=== PATIENT | female | born 1980 | race Hispanic/Latino ===

== ENCOUNTER 2018-09-04 11:07 | Emergency (ER) | payer SELFPAY ==
[~2018-09-04] VITALS: Ht 157.5 cm; Wt 56.4 kg
[2018-09-04] MEDS ORDERED: NS 1,000 ML IV ONE (12:45)
[2018-09-04] MEDS ORDERED: KETOROLAC 30 MG/ML VIAL (J1885) IV ONE (12:45)
[2018-09-04] MEDS ORDERED: ONDANSETRON 4MG/2ML VIAL (J2405) IV ONE (12:45)
[2018-09-04 13:33] LABS: BASO # 0.1 10^3/uL (0.0-0.2); BASO % 0.7 % (0.0-1.0); LYMPH # 2.1 10^3/uL (1.5-4.5); LYMPH % 22.5 % (24.0-44.0); MEAN CORPUSCULAR HEMOGLOBIN 27.9 pg (27.0-33.0); MEAN CORPUSCULAR HGB CONC 33.3 g/dl (32.0-36.5); MEAN CORPUSCULAR VOLUME 83.6 fl (80.0-96.0); MONO # 0.5 10^3/uL (0.0-0.8); MONO % 5.3 % (0.0-5.0); NEUTROPHILS # 6.7 10^3/uL (1.8-7.7); NEUTROPHILS % 70.9 % (36.0-66.0); PLATELET COUNT, AUTOMATED 365 10^3/uL (150-450); RED BLOOD COUNT 5.38 10^6/uL (4.00-5.40); WHITE BLOOD COUNT 9.4 10^3/uL (4.0-10.0)
[2018-09-04 13:55] LABS: ALBUMIN 4.7 GM/DL (3.2-5.2); ALT/SGPT 26 U/L (12-78); AMYLASE 70 U/L (25-115); BILIRUBIN,DIRECT 0.1 MG/DL (0.0-0.2); BILIRUBIN,TOTAL 0.4 MG/DL (0.2-1.0); BLOOD UREA NITROGEN 14 MG/DL (7-18); CALCIUM LEVEL 10.3 MG/DL (8.5-10.1); CARBON DIOXIDE LEVEL 26 MEQ/L (21-32); CHLORIDE LEVEL 105 MEQ/L (98-107); CREATININE FOR GFR 0.79 MG/DL (0.55-1.30); GLOMERULAR FILTRATION RATE > 60.0 (>60); GLUCOSE, FASTING 122 MG/DL (70-100); LIPASE 165 U/L (73-393); POTASSIUM SERUM 3.7 MEQ/L (3.5-5.1); SODIUM LEVEL 141 MEQ/L (136-145); TOTAL PROTEIN 9.1 GM/DL (6.4-8.2)
[2018-09-04] MEDS ORDERED: ISOVUE-370 76% 100ML VIAL (Q9967) As Ordered ONE (14:24)
[2018-09-04] MEDS ORDERED: ACETAMINOPHEN 500 MG TAB PO ONE (15:15)
[2018-09-04] MEDS ORDERED: GI COCKTAIL 50ML BTL(HYOSCYAMINE/MAALOX/LIDOCAINE VISCOUS)(1:3:1) PO ONE (15:15)
[2018-09-04] MEDS ORDERED: PROMETHAZINE INJ 25 MG/ML VIAL (J2550) IV ONE (15:15)
--- NOTE | 2018-09-04 15:18 | REP ---
CT ABDOMEN/PELVIS WITH IV CONTRAST: TECHNIQUE: Axial contrast enhanced images from the lung bases to the pubic symphysis using 100 mL Isovue 370 intravenous contrast material with multiplanar reformations. Visualized lung bases are clear. Liver, spleen, adrenals, pancreas, and kidneys are normal in appearance. There Is no hydronephrosis bilaterally. There is no abdominal aortic aneurysm. I see no adenopathy, free air, or free fluid. No bowel wall thickening is seen. The appendix is normal. In the right ovary, there is ill-defined density approximately 2.4 cm in maximum diameter which may represent a resolving cyst. No other definite pelvic abnormality is seen. Urinary bladder is not distended and not evaluated. IMPRESSION: Possible resolving cyst right ovary, 2.4 cm in diameter. No evidence of appendicitis or other acute finding. Electronically Signed by Jose Rojas MD 09/05/2018 12:38 P
[2018-09-04 15:37] LABS: BILIRUBIN, URINE MANUAL NEGATIVE (NEGATIVE); GLUCOSE, URINE (UA) MANUAL NEGATIVE (NEGATIVE); KETONE, URINE MANUAL 2+ mg/dL (NEGATIVE); UROBILINOGEN, URINE MANUAL NORMAL (NORMAL)
[2018-09-04 15:53] LABS: BACTERIA, URINE NONE SEEN; HYALINE CAST, URINE NONE SEEN /lpf (0-1); MUCUS, URINE MOD AMOUNT (NEGATIVE); RBC, URINE 0-1 /hpf (0-3); SQUAMOUS EPITHELIAL CELL URINE LARGE AMOUNT /hpf (SMALL AMT)
[2018-09-04] MEDS ORDERED: PEPC1TAB5 PO (17:09)
[2018-09-04] MEDS ORDERED: ONDA4TAB6 PO (17:09)
[2018-09-04] MEDS ORDERED: MACR100C43 PO (17:09)
[2018-09-04 17:58] VITALS: BP 120/70
== END 2018-09-04 18:00 | disposition home or self-care (01) ==
LOC: M ED 11:07
DX: N83.201 Unspecified ovarian cyst, right side (principal); N39.0 Urinary tract infection, site not specified; Z87.442 Personal history of urinary calculi; Z79.899 Other long term (current) drug therapy; F17.210 Nicotine dependence, cigarettes, uncomplicated
CPT/HCPCS: 74177; 80048; 80076; 81000; 82150; 83690; 84702; 85025; 87086; 87507; 96361; 96374; 96375; 99284; J1885; J2405; Q9967